=== PATIENT | female | born 1985 | race Caucasian/White ===

== ENCOUNTER → 2016-10-04 | Outpatient (CLI) | payer BC ==
[2016-10-04 11:15] LABS: FREE T4 (FREE THYROXINE) 0.95 ng/dL (0.93-1.71)
== END ==
LOC: LAB 10:06
PROVIDERS: ATTEND Family Medicine
DX: E03.9 Hypothyroidism, unspecified (principal)
CPT/HCPCS: 36415; 84439; 84443